=== PATIENT | female | born 1990 | race Two or more races ===

== ENCOUNTER 2021-03-17 13:38 | Emergency (ER) | payer OTHER ==
[2021-03-17 14:11] LABS: BASOPHIL 0.3 % (0-2); HCT 41.9 % (37.0-47.0); HGB 13.4 g/dl (12.5-16.0); LYMPHOCYTE 28.4 % (15-48); MCH 25.3 pg (25.0-31.0); MCV 79.2 fL (78.0-100.0); MONOCYTE 4.4 % (0-12); MPV 9.7 fL (6.0-9.5); NEUTROPHIL 65.7 % (41-80); NRBC 0; PLT 361 K/uL (150-400); RBC 5.29 M/uL (4.20-5.40); RDW 14.1 % (11.5-14.0); WBC 6.2 K/uL (4.0-10.5)
[2021-03-17 14:16] LABS: INR 1.03 (0.9-1.2); PROTHROMBIN TIME 12.9 SECONDS (11.8-13.4)
[2021-03-17 14:22] LABS: ALBUMIN 3.4 g/dL (3.4-5.0); BILIRUBIN - TOTAL 0.2 mg/dL (0.2-1.0); BUN/CREAT RATIO (CALC) 20.8 RATIO; CREATININE 0.53 mg/dL (0.51-0.95); GLOBULIN (CALCULATION) 4.7 g/dL; POTASSIUM 3.6 mmol/L (3.5-5.1); TOTAL PROTEIN 8.1 g/dL (6.4-8.2)
[2021-03-17] MEDS ORDERED: MEDROL 4MG DOSEP4 MG PO (19:28)
[2021-03-17] MEDS ORDERED: ZPAK PO (19:28)
[2021-03-17] MEDS ORDERED: ZOFRAN4 M1 PO (19:29)
== END 2021-03-17 19:40 | disposition home or self-care (01) ==
LOC: FER 13:38
PROVIDERS: Emergency Medicine
DX: U07.1 COVID-19 (principal); J12.82 Pneumonia due to coronavirus disease 2019; R00.0 Tachycardia, unspecified
CPT/HCPCS: 36415; 71045; 80053; 84484; 85025; 85610; 85730; 93005; J2405; J7030